=== PATIENT | female | born 1980 | race Caucasian/White ===

== ENCOUNTER 2024-09-15 00:32 | Emergency (ER) | payer MEDICAID, SELFPAY ==
[2024-09-15 00:32] VITALS: BP 122/90; PULSE 95; RESP 18; TEMP 37.7; O2SAT 97
[2024-09-15 00:38] VITALS: BP 122/90; PULSE 102; RESP 19; TEMP 37.7; O2SAT 97
--- NOTE | 2024-09-15 00:41 | EX.ED.DYSGE1 ---
HPI History of Present Illness Chief Complaint: General Illness Informant: patient Narrative Narrative: 1-2 days of respiratory illness and feeling a little dizzy, weak, headache, cough, congestion, runny nose and a left earache. She has had some fevers and chills. When she went to work tonight they told her that they had someone there recently you had COVID. 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 She has had influenza vaccine this year. PFSH PFS Medical History Hx of drug dependence Home Medications ?Medication ?Instructions ?Recorded ?Last Taken ?Type NK 09/15/24 Unknown History Allergy/AdvReac Type Severity Reaction Status Date / Time piperacillin (From Zosyn) AdvReac Swelling Verified 09/15/24 00:33 sulfamethoxazole (From AdvReac Swelling Verified 09/15/24 00:33 Bactrim) tazobactam (From Zosyn) AdvReac Swelling Verified 09/15/24 00:33 trimethoprim (From Bactrim) AdvReac Swelling Verified 09/15/24 00:33 Surgical History H/O tubal ligation H/O: hysterectomy Social History Smoking Status: Former smoker ROS ROS ED Constitutional Constitutional ED: Reports chills, fever(s) and subjective ENT ENT ED: Reports ear pain left, hoarseness, nasal congestion, rhinorrhea and sore throat Cardiovascular Cardiovascular: Denies chest pain or palpitations Respiratory/Chest Respiratory/Chest: Reports cough; Denies dyspnea on exertion Gastrointestinal Gastrointestinal: Reports other Details: Posttussive gagging vomiting once ; Denies abdominal pain, diarrhea, nausea or vomiting Genitourinary Genitourinary ED: Denies dysuria or hematuria Musculoskeletal Musculoskeletal: Denies myalgias or neck pain Integumentary Denies abscess or rash Neurologic Neurologic: Reports headache(s); Denies paresthesias or weakness Psychiatric Psychiatric: Denies depression or suicidal thoughts Endocrine Endocrinology: Denies polydipsia or polyuria EXAM Physical Exam Const Vital Signs: 09/15/24 00:32 09/15/24 00:32 09/15/24 00:38 Temperature 100 F H 100 F H Temperature Source Oral Oral Pulse Rate 95 102 H Respiratory Rate 18 19 H Respiratory Effort Normal Non-Labored Respiratory Pattern Normal Blood Pressure 122/90 H 122/90 H Blood Pressure Mean 100 100 Pulse Ox 97 97 Oxygen Delivery Method Room Air Room Air Positive well nourished and well developed General Appearance ED: well developed and NAD HEENT Reports moist mucous membranes HEENT Narrative: TMs normal bilaterally, the left is barely visible due to cerumen impaction. No discomfort with manipulation of the pinna or the tragus bilaterally. Some hoarseness of voice no stridor. normocephalic and atraumatic Throat: posterior oropharynx abnormal Positive for cobblestoning and erythema Eyes PERRL and EOMs intact bilaterally Neck no lymphadenopathy, supple and no meningeal signs Resp normal respiratory effort and clear to auscultation bilaterally Resp Narrative: Frequent bronchitic coughing especially with taking deep inspirations. Cardio no murmurs Rate: regular rate Rhythm: regular rhythm GI normal to inspection, nondistended, normoactive bowel sounds and non-tender Extremity normal to inspection Neuro oriented x3, CN's II-XII intact bilaterally and no sensory deficits noted Sensorium / Orientation: alert Motor Exam: strength 5/5 throughout Skin no rashes or lesions noted Lesions: no lesions Rashes: no rashes MDM MDM MDM Narrative Medical decision making narrative: Patient does have a low-grade fever of 100 here. Her pulse ox is 97% on room air her lungs are clear and I do not think she has pneumonia so I do not think she needs a chest x-ray. She is a non-smoker as well. Likely viral, we did a viral COVID/influenza/RSV swab. It is positive for COVID-19. She is doing well otherwise and was giving ibuprofen for her fever, at this time no prescriptions are indicated for this otherwise healthy 44-year-old. Offered a work note. Discharge Plan Triage Chief Complaint: General Illness ED Provider: Arnulfo Mcdonald Dx/Rx/DC Orders Clinical Impression: COVID-19 Instructions: Coronavirus Disease 2019 (COVID-19): Caring for Yourself or Others Prescriptions: No Action NK Stand Alone Forms: ED Work / School Excuse Primary Care Provider: Care Physician,No Primary Referrals: [facility] Doctor,Out of [Non-Staff] - As Needed Activity Restrictions/Additional Instructions: Try to get a home portable pulse oximeter and closely watch your oxygen levels periodically. If you stay below 90% for more than a minute or so, and/or you are feeling like your breathing is getting worse, return to the emergency department for further evaluation. Currently, CDC recommendations state that you should stay home through day 5 of symptoms, then as long as symptoms are improving, if you need to go to work or somewhere else you may for days 6-10 as long as you are wearing a mask the entire time. If you are feeling better after day 10 you may resume life is normal. Print Language: [place] Disposition Disposition: Home, Self Care
[2024-09-15] MEDS: Ibuprofen 600 MG Tablet PO (00:46)
[2024-09-15 01:56] VITALS: BP 122/85; PULSE 100; RESP 19; TEMP 37.5; O2SAT 100
== END 2024-09-15 01:56 | disposition home or self-care (01) ==
PROVIDERS: Emergency Provider Emergency Medicine; Visit Provider Emergency Medicine
DX: U07.1 COVID-19 (principal); Z87.891 Personal history of nicotine dependence; H92.02 Otalgia, left ear
CPT/HCPCS: 87631; 99282